=== PATIENT | female | born 1985 | race Caucasian/White ===

== ENCOUNTER 2017-06-22 16:21 | Emergency (ER) | payer MEDICAID ==
[~2017-06-22] VITALS: Ht 172.7 cm; Wt 65.0 kg
[~2017-06-22 16:21] MED LIST: CIPR500T2 PO
[2017-06-22 16:23] VITALS: BP 115/79; PULSE 79; RESP 16; TEMP 98.5; O2SAT 99
--- NOTE | 2017-06-22 17:16 | PD ---
HPI Chief Complaint: Complaint Time Seen by Provider: 17:02 Travel History International Travel<30 days: No Contact w/Intl Traveler<30days: No Traveled to known affect area: No History of Present Illness HPI Patient is a 31-year-old female who presents to the emergency room for evaluation of possible UTI. Patient reports that she has had urinary frequency as well as hesitancy and urgency for the past day, her back has been hurting her as well. Patient reports that she has been suffering from UTI for the past year, reports that symptoms are similar to when she was diagnosed with UTIs in the past. She reports that she has had subjective fevers yesterday, no chills. Patient reports no abdominal pain, nausea or vomiting. Patient denies any vaginal bleeding or discharge. Patient with no other complaints at this time. PFSH Past Medical History Medical History: Denies Significant Hx Asthma: No Anxiety: No Depression: No Cancer: No High Cholesterol: No Chemotherapy: No Chest Pain: No COPD: No Cerebrovascular Accident: No Diabetes: No Diminished Hearing: No GERD: No Headaches: No Hiatal Hernia: No Hypertension: No Kidney Stones: No Migraines: No Radiation Therapy: No Renal Failure: No Seizures: No Sickle Cell Disease: No Sleep Apnea: No Thyroid Disease: No Ulcer: No Tetanus Vaccination: > 5 Years Influenza Vaccination: No ?: Not LMP: 06/09/17 : 3 Para: 2 Miscarriage: 0 : 0 Past Surgical History Abdominal Surgery: No Arteriovenous Shunt: No Cardiac Surgery: No Endocrine Surgery: No Eye Surgery: No Genitourinary Surgery: No Gynecologic Surgery: No Insulin Pump: No Neurologic Surgery: No Oral Surgery: Yes Thoracic Surgery: No Other Surgery: Yes (WISDOM TOOTH) Social History Alcohol Use: Yes (SOCIALLY) Tobacco Use: Yes ("1 PACK EVERY 3 DAYS") Allergies-Medications (Allergen,Severity, Reaction): Coded Allergies: No Known Allergies (Verified , 06/22/17) Reported Meds & Prescriptions Reported Meds & Active Scripts Active No Active Prescriptions or Reported Medications Review of Systems General / Constitutional: Positive: Fever (subjective fevers), No: Chills Eyes: No: Visual changes HENT: No: Headaches Cardiovascular: No: Chest Pain or Discomfort Respiratory: No: Shortness of Breath Gastrointestinal: No: Nausea, Abdominal Pain Genitourinary: Positive: Urgency, Frequency, Flank Pain, No: Dysuria, Hematuria , Pelvic Pain Musculoskeletal: No: Pain Skin: No Rash Neurologic: No: Weakness Psychiatric: No: Depression Endocrine: No: Polydipsia Hematologic/Lymphatic: No: Easy Bruising Physical Exam Narrative GENERAL: NAD SKIN: Focused skin assessment warm/dry. HEAD: Atraumatic. Normocephalic. EYES: Pupils equal and round. No scleral icterus. No injection or drainage. ENT: No nasal bleeding or discharge. Mucous membranes pink and moist. NECK: Trachea midline. No JVD. CARDIOVASCULAR: Regular rate and rhythm. No murmur appreciated. RESPIRATORY: No accessory muscle use. Clear to auscultation. Breath sounds equal bilaterally. GASTROINTESTINAL: Abdomen soft, non-tender, nondistended. Hepatic and splenic margins not palpable. B/L Flank pain MUSCULOSKELETAL: No obvious deformities. No clubbing. No cyanosis. No edema. NEUROLOGICAL: Awake and alert. Normal speech. PSYCHIATRIC: Appropriate mood and affect; insight and judgment normal. Data Data Last Documented VS Vital Signs Date Time Temp Pulse Resp B/P (MAP) Pulse Ox O2 Delivery O2 Flow Rate FiO2 06/22/17 18:47 80 18 112/80 (91) 100 Room Air 06/22/17 16:23 98.5 Orders Orders Urinalysis - C+S If Indicated (06/22/17 16:31) Ed Urine Pregnancytest Poc (06/22/17 16:31) Complete Blood Count With Diff (06/22/17 17:42) Comprehensive Metabolic Panel (06/22/17 17:42) Prothrombin Time / Inr (Pt) (06/22/17 17:42) Act Partial Throm Time (Ptt) (06/22/17 17:42) Iv Access Insert/Monitor (06/22/17 17:42) Ondansetron Inj (Zofran Inj) (06/22/17 17:45) Sodium Chlor 0.9% 1000 Ml Inj (Ns 1000 M (06/22/17 17:42) Sodium Chloride 0.9% Flush (Ns Flush) (06/22/17 17:45) Potassium Chloride (Kcl) (06/22/17 19:15) Labs Laboratory Tests Test 06/22/17 17:00 06/22/17 17:55 Urine Color YELLOW Urine Turbidity HAZY Urine pH 6.5 Urine Specific [place] 1.026 Urine Protein TRACE mg/dL Urine Glucose (UA) NEG mg/dL Urine Ketones NEG mg/dL Urine Occult Blood NEG Urine Nitrite NEG Urine Bilirubin NEG Urine Urobilinogen LESS THAN 2.0 MG/DL Urine Leukocyte Esterase NEG Urine RBC 1 /hpf Urine WBC LESS THAN 1 /hpf Urine Squamous Epithelial Cells 8 /hpf Urine Mucus FEW /lpf Microscopic Urinalysis Comment CULT NOT INDICATED White Blood Count 2.8 TH/MM3 Red Blood Count 4.18 MIL/MM3 Hemoglobin 12.4 GM/DL Hematocrit 37.3 % Mean Corpuscular Volume 89.2 FL Mean Corpuscular Hemoglobin 29.7 PG Mean Corpuscular Hemoglobin Concent 33.3 % Red Cell Distribution Width 12.3 % Platelet Count 191 TH/MM3 Mean Platelet Volume 7.4 FL Neutrophils (%) (Auto) 43.4 % Lymphocytes (%) (Auto) 42.8 % Monocytes (%) (Auto) 12.3 % Eosinophils (%) (Auto) 1.1 % Basophils (%) (Auto) 0.4 % Neutrophils # (Auto) 1.2 TH/MM3 Lymphocytes # (Auto) 1.2 TH/MM3 Monocytes # (Auto) 0.3 TH/MM3 Eosinophils # (Auto) 0.0 TH/MM3 Basophils # (Auto) 0.0 TH/MM3 CBC Comment DIFF FINAL Differential Comment Prothrombin Time 10.7 SEC Prothromb Time International Ratio 1.0 RATIO Activated Partial Thromboplast Time 29.0 SEC Blood Urea Nitrogen 10 MG/DL Creatinine 0.73 MG/DL Random Glucose 93 MG/DL Total Protein 6.6 GM/DL Albumin 3.3 GM/DL Calcium Level 8.4 MG/DL Alkaline Phosphatase 57 U/L Aspartate Amino Transf (AST/SGOT) 20 U/L Alanine Aminotransferase (ALT/SGPT) 21 U/L Total Bilirubin 0.2 MG/DL Sodium Level 137 MEQ/L Potassium Level 3.4 MEQ/L Chloride Level 102 MEQ/L Carbon Dioxide Level 29.5 MEQ/L Anion Gap 6 MEQ/L Estimat Glomerular Filtration Rate 92 ML/MIN [facility] Medical Decision Making Medical Screen Exam Complete: Yes Emergency Medical Condition: Yes Medical Record Reviewed: Yes Interpretation(s) Vital Signs Date Time Temp Pulse Resp B/P (MAP) Pulse Ox O2 Delivery O2 Flow Rate FiO2 06/22/17 17:03 80 18 06/22/17 16:23 98.5 79 16 115/79 (91) 99 Differential Diagnosis Differential includes pyelonephritis, UTI, kidney stones Narrative Course 31-year-old female who presents to emergency room complaints of urinary urgency and frequency for the past day, complaining of bilateral flank pain. Reports that her symptoms are similar to when she was diagnosed with UTIs in the past. UA ordered. VSS Vital Signs Date Time Temp Pulse Resp B/P (MAP) Pulse Ox O2 Delivery O2 Flow Rate FiO2 06/22/17 17:03 80 18 06/22/17 16:23 98.5 79 16 115/79 (91) 99 CBC & BMP Diagram 06/22/17 17:55 Total Protein 6.6, Albumin 3.3 L, Calcium Level 8.4 L, Alkaline Phosphatase 57, Aspartate Amino Transf (AST/SGOT) 20, Alanine Aminotransferase (ALT/SGPT) 21, Total Bilirubin 0.2 UA: few mucous, neg leuk esteraste, neg nitrites, less than 1 wbc I reviewed all lab and studies with patient in detail. Patient with no abdominal pain at this time, abdomen is soft, nt/nd, no peritoneal signs. Patient will follow up with pcp and will return to ER as needed. Signs and symptoms of when to return to the ER was reviewed with patient in detail. Diagnosis Primary Impression: Bilateral flank pain Additional Impression: Urinary frequency Patient Instructions: General Instructions Additional Instructions: Please provide patient with a copy of their lab work and studies at discharge* * Please follow up with your primary care doctor in 2-3 days Return to the ER if symptoms worsen or progress Return to the ER as needed Scripts No Active Prescriptions or Reported Meds Disposition: 01 DISCHARGE HOME Condition: Stable Claire Chavez DO Jun 22, 2017 17:16
[2017-06-22 17:33] LABS: BILIRUBIN, URINE NEG (NEG); BLOOD, URINE NEG (NEG); GLUCOSE,URINE NEG (NEG); KETONE, URINE NEG (NEG); MUCUS URINE FEW /lpf (OCC); NITRITE,URINE NEG (NEG); PH, URINE 6.5 (5.0-8.5); SQUAMOUS EPITHELIAL CELL URINE 8 /hpf (0-5); URINE COLOR YELLOW (YELLW/STRAW); URINE LEUKOCYTE ESTERASE NEG (NEG)
[2017-06-22] MEDS ORDERED: SODIUM CHLOR 0.9% 1000 ML INJ 1,000 ML IV SCH ×2 (17:42)
[2017-06-22] MEDS ORDERED: ONDANSETRON HCL 4 MG/2 ML VIAL IVP ONE ×2 (17:45)
[2017-06-22] MEDS ORDERED: SODIUM CHLORIDE 0.9% FLUSH 10 ML FLUSH IV FLUSH PRN ×2 (17:45)
[2017-06-22 18:28] LABS: AUTOMATED NEUTROPHIL # 1.2 TH/MM3 (1.8-7.7); BASOPHIL % 0.4 % (0.0-2.0); EOSINOPHIL % 1.1 % (0.0-4.0); HEMATOCRIT 37.3 % (35.0-46.0); HEMOGLOBIN 12.4 GM/DL (11.6-15.3); LYMPH % 42.8 % (9.0-44.0); LYMPHOCYTE # 1.2 TH/MM3 (1.0-4.8); MEAN CELL VOLUME 89.2 FL (80.0-100.0); MEAN CORPUSCULAR HEMOGLOBIN 29.7 PG (27.0-34.0); MEAN CORPUSCULAR HGB CONC 33.3 % (32.0-36.0); MEAN PLATELET VOLUME 7.4 FL (7.0-11.0); MONO % 12.3 % (0.0-8.0); MONOCYTE # 0.3 TH/MM3 (0-0.9); NEUT % 43.4 % (16.0-70.0); PLATELET COUNT 191 TH/MM3 (150-450); RED BLOOD COUNT 4.18 MIL/MM3 (4.00-5.30); RED CELL DISTRIBUTION WIDTH 12.3 % (11.6-17.2); WHITE BLOOD COUNT 2.8 TH/MM3 (4.0-11.0)
[2017-06-22 18:42] LABS: PROTHROMBIN TIME - PATIENT 10.7 SEC (9.8-11.6)
[2017-06-22 18:47] VITALS: BP 112/80; PULSE 80; RESP 18; O2SAT 100
[2017-06-22 18:57] LABS: ALBUMIN 3.3 GM/DL (3.4-5.0); AST (GOT) 20 U/L (15-37); BICARBONATE 29.5 MEQ/L (21.0-32.0); BLOOD UREA NITROGEN 10 MG/DL (7-18); CALCIUM 8.4 MG/DL (8.5-10.1); CHLORIDE 102 MEQ/L (98-107); CREATININE 0.73 MG/DL (0.50-1.00); GLOMERULAR FILTRATION RATE 92 ML/MIN (>89); GLUCOSE,RANDOM 93 MG/DL (74-106); SODIUM (NA) 137 MEQ/L (136-145)
[2017-06-22 18:59] LABS: ALT (GPT) 21 U/L (10-53)
[2017-06-22 19:00] LABS: ALKALINE PHOSPHATASE 57 U/L (45-117); TOTAL BILIRUBIN ADULT 0.2 MG/DL (0.2-1.0); TOTAL PROTEIN 6.6 GM/DL (6.4-8.2)
[2017-06-22] MEDS ORDERED: POTASSIUM CHLORIDE 10 MEQ CONTROLLED RELEASE TAB PO ONE ×2 (19:15)
[2017-06-22 19:24] VITALS: BP 100/66; PULSE 73; RESP 18; O2SAT 100
== END 2017-06-22 19:34 | disposition home or self-care (01) ==
LOC: NEPD 16:21
DX: R10.9 Unspecified abdominal pain (principal); R35.0 Frequency of micturition
CPT/HCPCS: 80053; 81001; 84703; 85025; 85610; 85730; 96360; 99284; J7030